=== PATIENT | female | born 1995 | race Caucasian/White ===

== ENCOUNTER 2016-10-14 18:45 | Emergency (ER) | payer OTHER ==
[2016-10-14 18:52] VITALS: TEMP 98.4
[2016-10-14] MEDS ORDERED: PROPARACAINE 0.5% 15 ML OPHT DROP OP ONE (19:54)
[2016-10-14] MEDS ORDERED: PROPARACAINE 0.5% 15 ML OPHT DROP ONE (19:59)
[2016-10-14] MEDS ORDERED: FLUORESCEIN SODIUM 1 MG STRIP OP ONE (20:00)
[2016-10-14] MEDS ORDERED: OFLOXACIN 0.3% SOLN PREPACK OPHT.BTL TAKEHOME ONE (20:07)
[2016-10-14] MEDS ORDERED: IBUPROFEN 600 MG TAB PO ONE (20:09)
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
[2016-10-14 20:20] VITALS: BP 117/76; PULSE 81; RESP 17; O2SAT 96
== END 2016-10-14 20:19 | disposition home or self-care (01) ==
DX: H18.821 Corneal disorder due to contact lens, right eye (principal); X12.XXXA Contact with other hot fluids, initial encounter; Y92.009 Unspecified place in unspecified non-institutional (private) residence as the place of occurrence of the external cause; Y99.8 Other external cause status; Y93.89 Activity, other specified

== ENCOUNTER 2018-05-16 09:21 | Emergency (ER) | payer OTHER ==
[2018-05-16] MEDS ORDERED: NS 1,000 ML IV ONE ×3 (09:30→10:14)
[2018-05-16] MEDS ORDERED: ONDANSETRON 4 MG/2 ML VIAL IVP ONE (09:30)
[2018-05-16] MEDS ORDERED: KETOROLAC 15 MG/1 ML SDV IVP ONE (09:44)
--- NOTE | 2018-05-16 09:47 | EDPHY ---
H & P Time Seen by Provider: 05/16/18 09:28 HPI/ROS: CHIEF COMPLAINT: Abdominal pain and nausea and vomiting HISTORY OF PRESENT ILLNESS: Patient is a 22-year-old female with no significant past medical history here with her mother with chief complaint of nausea and vomiting for the last few days. Says he started feeling better on Friday yesterday but then history the evening started feeling much worse. She has had no fever or chills. She has noticed no blood in her stool. She has no history of Crohn's or ulcerative colitis. She has had no recent antibiotics. She has had no surgery to her abdomen. She takes no prescribed medications but does have the implanon. REVIEW OF SYSTEMS: Constitutional: No fever, no chills. Eyes: No discharge. ENT: No sore throat. Cardiovascular: No chest pain, no palpitations. Respiratory: No cough, no shortness of breath. Gastrointestinal: + abdominal pain, + vomiting. Genitourinary: No hematuria. Musculoskeletal: No back pain. Skin: No rashes. Neurological: No headache. Smoking Status: Never smoked Physical Exam: General Appearance: Alert and no distress. Eyes: Pupils equal and round no injection. Respiratory: Chest is nontender, lungs are clear to auscultation. Cardiac: regular rate and rhythm. Gastrointestinal: Abdomen is soft and nontender, no masses, bowel sounds normal. In particular no tenderness to the right upper or right lower quadrant he. No peritoneal signs. Musculoskeletal: Neck is supple and nontender. Extremities have full range of motion and are nontender. Skin: No rashes or lesions. Constitutional: Initial Vital Signs Temperature (C) 36.4 C 05/16/18 09:26 Heart Rate 107 H 05/16/18 09:26 Respiratory Rate 18 05/16/18 09:26 Blood Pressure 129/92 H 05/16/18 09:26 O2 Sat (%) 96 05/16/18 09:26 O2 Delivery Mode Room Air Allergies/Adverse Reactions: No Known Allergies Allergy (Verified 05/16/18 09:25) Home Medications: Medication Instructions Recorded Ondansetron [Zofran Odt] 4 mg PO Q8HRS #16 tab.rapdis 05/16/18 Medical Decision Making ED Course/Re-evaluation: Patient is significantly improved after IV fluids, Toradol and Zofran. Labs reveal no leukocytosis or transaminitis or other acute changes. She is not no evidence of UTI. Urinalysis does show significant dehydration she was given IV normal saline with improvement of her symptoms. She is tolerating p.o. At time discharge. I did consider appendicitis, cholecystitis, colitis, diverticulitis. - Data Points Laboratory Results: Laboratory Results 05/16/18 09:45 05/16/18 11:01 05/16/18 05/16/18 05/16/18 11:01 09:45 09:41 WBC 10.52 10^3/uL H 10^3/uL (3.80-9.50) RBC 5.34 10^6/uL H 10^6/uL (4.18-5.33) Hgb 16.8 g/dL H g/dL (12.6-16.3) Hct 49.1 % H % (38.0-47.0) MCV 91.9 fL fL (81.5-99.8) MCH 31.5 pg pg (27.9-34.1) MCHC 34.2 g/dL g/dL (32.4-36.7) RDW 12.5 % % (11.5-15.2) Plt Count 166 10^3/uL 10^3/uL (150-400) MPV 13.8 fL H fL (8.7-11.7) Neut % (Auto) 76.1 % H % (39.3-74.2) Lymph % (Auto) 15.8 % % (15.0-45.0) Dupage % (Auto) 6.9 % % (4.5-13.0) Eos % (Auto) 0.1 % L % (0.6-7.6) Baso % (Auto) 0.5 % % (0.3-1.7) Nucleat RBC Rel Count 0.0 % % (0.0-0.2) Absolute Neuts (auto) 8.01 10^3/uL H 10^3/uL (1.70-6.50) Absolute Lymphs (auto) 1.66 10^3/uL 10^3/uL (1.00-3.00) Absolute Monos (auto) 0.73 10^3/uL 10^3/uL (0.30-0.80) Absolute Eos (auto) 0.01 10^3/uL L 10^3/uL (0.03-0.40) Absolute Basos (auto) 0.05 10^3/uL 10^3/uL (0.02-0.10) Absolute Nucleated RBC 0.00 10^3/uL 10^3/uL (0-0.01) Immature Gran % 0.6 % % (0.0-1.1) Immature Gran # 0.06 10^3/uL 10^3/uL (0.00-0.10) Sodium 143 mEq/L mEq/L (135-145) Potassium 3.6 mEq/L mEq/L (3.3-5.0) Chloride 105 mEq/L mEq/L (97-110) Carbon Dioxide 21 mEq/l L mEq/l (22-31) Anion Gap 17 mEq/L H mEq/L (8-16) BUN 11 mg/dL mg/dL (7-23) Creatinine 0.9 mg/dL mg/dL (0.6-1.0) Estimated GFR > 60 Glucose 124 mg/dL H mg/dL (70-100) Calcium 10.7 mg/dL H mg/dL (8.5-10.4) Phosphorus 2.6 mg/dL mg/dL (2.5-4.5) Total Bilirubin 0.5 mg/dL mg/dL (0.1-1.4) AST 28 IU/L IU/L (14-46) ALT 32 IU/L IU/L (9-52) Alkaline Phosphatase 84 IU/L IU/L (38-126) Total Protein 8.6 g/dL H g/dL (6.3-8.2) Albumin 4.7 g/dL g/dL (3.5-5.0) Lipase 65 IU/L IU/L (23-300) Urine Color CHILO Urine Appearance MODERATELY TURBID Urine pH 5.0 (5.0-7.5) Ur Specific [place] > 1.035 H (1.002-1.030) Urine Protein 3+ H (NEGATIVE) Urine Ketones TRACE H (NEGATIVE) Urine Blood 1+ H (NEGATIVE) Urine Nitrate NEGATIVE (NEGATIVE) Urine Bilirubin NEGATIVE (NEGATIVE) Urine Urobilinogen NEGATIVE EU EU (0.2-1.0) Ur Leukocyte Esterase NEGATIVE (NEGATIVE) Urine RBC 3-5 /hpf H /hpf (0-3) Urine WBC 5-10 /hpf H /hpf (0-3) Ur Epithelial Cells 2+ /lpf H /lpf (NONE-1+) Urine Bacteria 1+ /hpf H /hpf (NONE SEEN) Hyaline Casts >182 /lpf H /lpf (0-1) Urine Mucus 4+ /lpf H /lpf (NONE-1+) Urine Glucose NEGATIVE (NEGATIVE) Medications Given: Discontinued Medications Sodium Chloride (Ns) 1,000 mls @ 0 mls/hr IV EDNOW ONE; Wide Open PRN Reason: Protocol Stop: 05/16/18 09:31 Last Admin: 05/16/18 09:49 Dose: 1,000 mls Sodium Chloride (Ns) 1,000 mls @ 0 mls/hr IV EDNOW ONE; Wide Open PRN Reason: Protocol Stop: 05/16/18 10:14 Last Admin: 05/16/18 10:19 Dose: 1,000 mls Sodium Chloride (Ns) 1,000 mls @ 0 mls/hr IV EDNOW ONE; Wide Open PRN Reason: Protocol Stop: 05/16/18 10:15 Last Admin: 05/16/18 10:19 Dose: 1,000 mls Ketorolac Tromethamine (Toradol) 15 mg IVP EDNOW ONE Stop: 05/16/18 09:45 Last Admin: 05/16/18 09:51 Dose: 15 mg Ondansetron HCl (Zofran) 4 mg IVP ONCE ONE Stop: 05/16/18 09:31 Last Admin: 05/16/18 09:49 Dose: 4 mg Point of Care Test Results: Urine Collection Date 05/16/18 Collection Time 09:46 HCG Results Negative Departure - Departure Disposition: Home, Routine, Self-Care Clinical Impression: Nausea and vomiting Condition: Good Instructions: Gastroenteritis in Children (ED) Additional Instructions: Return to the ER if he developed worsening abdominal pain, fever or other worrisome symptoms. Take Zofran as needed for nausea vomiting. Referrals: NONE *PRIMARY CARE P,. [Primary Care Provider] - As per Instructions Prescriptions: Ondansetron [Zofran Odt] 4 mg PO Q8HRS #16 tablevy
[2018-05-16 11:32] LABS: PLATELET COUNT 166 10^3/uL (150-400)
[2018-05-16 12:25] VITALS: BP 110/69
== END 2018-05-16 12:25 | disposition home or self-care (01) ==
DX: R11.2 Nausea with vomiting, unspecified (principal); E86.9 Volume depletion, unspecified
CPT/HCPCS: 96374; J1885; J2405